=== PATIENT | female | born 1995 | race African-American/Black ===

== ENCOUNTER → 2020-08-25 | Outpatient (CLI) | payer MEDICAID ==
[~2020-08-25] MED LIST: COVID-19 VACCINE (PFIZER)/PF 30 MCG/0.3 ML VIAL IM ONE; EPINEPHRINE INJ/PF 1 MG/1 ML AMPULE IM PRN
--- OUTSIDE RECORDS SUMMARY | 2020-08-28 10:27 | XMS REPORT ---
:1995 [facility] [address] [place] [address] Care Team Providers Name Role Phone Hill Lucas Attending Clinician Unavailable Allergies, Adverse Reactions, Alerts This patient has no known allergies or adverse reactions. Medications Ordered Filled Start Stop Current Ordering Indication Dosage Frequency Signature Comments Components Medication Medication Date Date Medication? Clinician (SIG) Name Name cetirizine No 1 Q1D cetirizine 10 mg 10 mg tablet Take tablet 1 tablet Take 1 every day tablet by oral every day route for by oral 30 days. route for 30 days. ibuprofen No 1 Q1D ibuprofen 800 mg 800 mg tablet Take tablet 1 tablet Take 1 every day tablet by oral every day route as by oral needed. route as needed. Problems Condition Condition Condition Status Onset Resolution Last Treatin g Comments Name Details Category Date Date Treatment Clinician Date Allergic Allergic Problem Active 2019-08 rhinitis Rhinitis 0-13 00:00: 00 Macromastia Macromastia Problem Active 2019-08 0-13 00:00: 00 Primary Primary Problem Active 2019-08 dysmenorrhe Dysmenorrhe 0-13 a a 00:00: 00 Chronic Chronic Problem Active 2019-08 thoracic Thoracic 0-13 back pain Back Pain 00:00: 00 Dyspnea on Dyspnea on Problem Active 2019-08 exertion Exertion 0-13 00:00: 00 Procedures Procedure Date / Time Performed Performing Clinician Anastasia goncalves OFFICE/OUTPATIENT VISIT EST 2016-10-07 16:15:00 Results This patient has no known results. Assessments Condition Name Status Diagnosis Date Treating Clinici an Allergic rhinitis Active 2020-08-15 08:58:44 Dyspnea on exertion Active 2020-08-15 08:58:46 Chronic thoracic back pain Active 2020-08-15 09:36:13 Chronic thoracic back pain Active 2020-05-15 15:00:22 Dyspnea on exertion Active 2020-05-15 15:01:03 Body mass index 30+ - obesity Active 2020-05-15 16:16:5 5 Administration of influenza vaccine Active 2020-05-15 1 6:18:52 Macromastia Active 2020-05-15 14:54:14 Acne, unspecified Active Atopic dermatitis, unspecified Active Allergic rhinitis, unspecified Active Elevated blood-pressure reading, w/o Active diagnosis of htn Encounters Start End Encounter Admission Attending Care Care Encounter Date/Time Date/Time Type Type Clinicians Facility Department ID 2020-08-15 2020-08-15 [facility] [id number] 00:00:00 00:00:00 [place] [id number] [facility] Medical MD: [address] [place] [address], Ph. 2020-05-15 2020-05-15 [facility] [id number] 00:00:00 00:00:00 [place] [id number] [facility] Medical MD: [address] [place] [address], Ph. 2016-10-07 2016-10-07 Outpatient [facility] [id number] 16:15:00 16:15:00 [place] [id number] [facility]ikel [facility] [id number] and [id number] [place] Immunizations Ordered Immunization Filled Immunization Date Status Commen ts Refusal Reason Name Name Influenza, 2020-05-16 Completed injectable, MDCK, 14:37:00 quadrivalent Plan of Treatment Planned Activity Planned Date Details Comments Future Appointment 2020-11-12 00:00:00 Radha Lan, [address] [facility]; , [place] [address] Social History Smoking Status Start Date Stop Date Never Smoker Vital Signs Vital Name Observation Time Observation Value Comments BP Diastolic 2020-08-15 00:00:00 83 mm[Hg] Height 2020-08-15 00:00:00 62 [in_i] BMI (Body Mass Index) 2020-08-15 00:00:00 35.5 kg/m2 BP Systolic 2020-08-15 00:00:00 127 mm[Hg] Body Weight 2020-08-15 00:00:00 194 [lb_av] BP Diastolic 2020-05-15 00:00:00 89 mm[Hg] Height 2020-05-15 00:00:00 62 [in_i] BMI (Body Mass Index) 2020-05-15 00:00:00 34 kg/m2 BP Systolic 2020-05-15 00:00:00 128 mm[Hg] Body Weight 2020-05-15 00:00:00 186 [lb_av] Hospital Discharge Instructions 1. Allergic rhinitis allergies: care instructions managing your allergies: care instructions cetirizine 10 mg tablet 2. Dyspnea on exertion shortness of breath: care instructions 3. Chronic thoracic back pain back pain: care instructions ibuprofen 800 mg tablet Discussion Note Patient verbalized understanding and agreement with recommended care plan. All questions and concernswere addressed and answered adequately. Follow up visit will address macromastia and dysmenorrhea.1. Macromastia breast surgery referral breast self-exam: care instructions 2. Chronic thoracic back pain back pain: care instructions 3. Dyspnea on exertion shortness of breath: care instructions 4. Body mass index 30+ - obesity body mass index: care instructions learning abouthealthy weight 5. Administration of influenza vaccine Flucelvax Quad 60 mcg (15 mcg x 4)/0.5 mL intramuscular susp Discussion Note Patient verbalized understanding and agreement with recom mended care plan. All questions and concerns were addressed and answered adequately. Follow up visitwill address macromastia, back pain, dyspnes, allergy
== END ==
LOC: EMPHEALTH 13:54
PROVIDERS: ATTEND Internal Medicine
DX: Z23 Encounter for immunization (principal)
CPT/HCPCS: 91300